=== PATIENT | male | born 1955 | race Caucasian/White ===

== ENCOUNTER 2020-12-21 15:38 | Emergency (ER) | payer OTHER ==
[~2020-12-21] VITALS: Ht 172.7 cm; Wt 90.7 kg
[2020-12-21 16:06] LABS: BASOPHILS 1.3 % (0.0-2.0); EOSINOPHILS 7.3 % (0.0-3.0); HEMATOCRIT 43.8 % (42.0-52.0); HEMOGLOBIN 14.6 gm/dL (14.0-18.0); LYMPHOCYTES 26.5 % (24.0-44.0); MCH 29.4 pg (26.0-34.0); MCHC 33.3 g/dL (28.0-37.0); MCV 88.4 fL (80.0-100.0); MONOCYTES 9.8 % (1.0-8.0); PLATELET COUNT 245 thou/uL (150-400); POLYS 55.1 % (36.0-66.0); RBC 4.95 mil/uL (4.50-6.00); RDW 13.3 % (10.5-14.5); WBC 5.5 thou/uL (4.0-11.0)
[2020-12-21 16:13] LABS: ANION GAP 8 mmol/L (7-16); BUN 17 mg/dL (7-18); CALCIUM 8.8 mg/dL (8.5-10.1); CHLORIDE 101 mmol/L (98-107); CO2 28 mmol/L (21-32); GLUCOSE 98 mg/dL (74-106); POTASSIUM 4.5 mmol/L (3.5-5.1); SODIUM 137 mmol/L (136-145)
[2020-12-21 16:23] LABS: ALBUMIN 4.1 g/dL (3.4-5.0); SGOT 31 U/L (15-37); SGPT 55 U/L (16-63); TOTAL BILIRUBIN 0.3 mg/dL (0.2-1.0); TOTAL PROTEIN 7.7 g/dL (6.4-8.2); TROPONIN-I <0.06 ng/mL (<0.06)
[2020-12-21] MEDS ORDERED: NORVASC5 MG PO (18:18)
[2020-12-21] MEDS ORDERED: METOPROLOL SUC100 MG PO (18:18)
[2020-12-21] MEDS ORDERED: ROSUVASTATIN CA10 MG PO (18:19)
[2020-12-21 20:03] VITALS: BP 137/65
--- NOTE | 2020-12-22 06:57 | EKG ---
[address] [address] ELECTROCARDIOGRAM REPORT Name: SELAM ORNELAS Room #: DEP ASIA Barlow#: [id number] Admission: 12/21/20 Attend Phys: Discharge: 12/21/20 Date of : 51 Report #: [id number] [facility] Test Date: 2020-12-21 Test Time: 15:42:38 Pat Name: SELAM ORNELAS Department: Room: Gender: [employer]: ANDREAS : 1955 Requested By: Jarad Mario Order Number: [id number] MD: Colin Zavala Measurements Intervals [place] Rate: 67 P: 38 [place]: 169 QRS: 9 QRSD: 84 T: 39 QT: 404 QTc: 427 Interpretive Statements Sinus rhythm No previous ECG available for comparison Electronically Signed On 12-22-2020 6:57:03 CDT by Colin Zavala [email or web address] <ELECTRONICALLY SIGNED> By: Colin Zavala MD, [facility] 12/22/20 [id number] Colin Zavala MD, FACC /EPI
== END 2020-12-21 20:05 | disposition home or self-care (01) ==
LOC: ER 15:38
PROVIDERS: Emergency Medicine
DX: R07.89 Other chest pain (principal); I10 Essential (primary) hypertension; E78.5 Hyperlipidemia, unspecified; Z79.899 Other long term (current) drug therapy; Z88.8 Allergy status to other drugs, medicaments and biological substances